=== PATIENT | male | born 1995 | race Caucasian/White ===

== ENCOUNTER 2022-07-07 19:18 | Emergency (ER) | payer SELFPAY ==
[~2022-07-07] VITALS: Ht 165.1 cm; Wt 95.0 kg
[2022-07-07] MEDS ORDERED: PROPARACAINE HCL 0.5% 15 ML OPHTHALMIC SOLUTION OU ONE (20:30)
[2022-07-07] MEDS ORDERED: FLUORESCEIN SODIUM 1 MG STRIP ONE (20:56)
[2022-07-07] MEDS ORDERED: ACET-66 PO (21:25)
[2022-07-07] MEDS ORDERED: CEPH-558 PO (21:25)
[2022-07-07] MEDS ORDERED: ERYTHROMYCIN 0.5% 3.5 GM TUBE OPHTHALMIC OINTMENT OD ONE (21:30)
[2022-07-07 21:44] VITALS: BP 122/67
== END 2022-07-07 21:48 | disposition home or self-care (01) ==
LOC: EMS 19:20
DX: T15.01XA Foreign body in cornea, right eye, initial encounter (principal); W31.89XA Contact with other specified machinery, initial encounter; Y93.89 Activity, other specified; Y92.89 Other specified places as the place of occurrence of the external cause; Y99.8 Other external cause status
CPT/HCPCS: 65222; 99283; 99284